=== PATIENT | male | born 1965 | race Caucasian/White ===

== ENCOUNTER 2020-11-28 02:05 | Emergency (ER) | payer MEDICAID ==
[~2020-11-28] VITALS: Ht 182.9 cm; Wt 102.1 kg
[2020-11-28] MEDS ORDERED: LIPITOR 40 MG T40 M1 PO (02:28)
[2020-11-28] MEDS ORDERED: NORVASC10 MG PO (02:29)
[2020-11-28] MEDS ORDERED: ISOSORBIDE MONO30 M1 PO (02:29)
[2020-11-28] MEDS ORDERED: ELIQUIS2.5 MG PO (02:30)
[2020-11-28] MEDS ORDERED: METOPROLOL SUCC25 M1 PO (02:31)
[2020-11-28 04:04] LABS: CREATININE 1.2 mg/dL (0.6-1.3); POTASSIUM 4.5 mmol/L (3.5-5.1)
[2020-11-28 04:09] LABS: ALBUMIN 3.5 g/dL (3.4-5.0); MAGNESIUM 2.1 mg/dL (1.8-2.4); TOTAL BILIRUBIN 0.3 mg/dL (<0.1-1.0); TOTAL PROTEIN 7.4 g/dL (6.4-8.2)
[2020-11-28 04:16] LABS: ABSOLUTE BASOPHILS 0.1 thou/uL (0.0-0.2); ABSOLUTE EOSINOPHILS 0.4 thou/uL (0.0-0.7); ABSOLUTE LYMPHOCYTES 1.1 thou/uL (0.8-5.3); ABSOLUTE MONOCYTES 0.7 thou/uL (0.0-1.2); ABSOLUTE NEUTROPHILS 9.1 thou/uL (1.6-8.1); BASOPHILS 0.8 %; EOSINOPHILS 3.9 %; HEMATOCRIT 40.1 % (42.0-52.0); HEMOGLOBIN 13.5 gm/dL (14.0-18.0); LYMPHOCYTES 9.3 %; MCH 31.1 pg (26.0-34.0); MCHC 33.6 g/dL (28.0-37.0); MCV 92.5 fL (80.0-100.0); MONOCYTES 6.4 %; MPV 7.6 fl. (7.2-11.1); NUCLEATED RBCS 0 /100WBC; POLYS 79.6 %; RBC 4.34 mil/uL (4.50-6.00); RDW-CV 13.9 % (10.5-14.5); WBC 11.5 thou/uL (4.0-11.0)
[2020-11-28] MEDS ORDERED: CORTISPORIN OTI10 ML OTIC (04:44)
[2020-11-28 04:53] VITALS: BP 151/86
[2020-11-28 06:37] LABS: CLUMPED PLTS OCCASIONAL; PLATELET ESTIMATE ADEQUATE
[2020-11-28 06:40] LABS: PLATELET COUNT* 278 thou/uL (150-400)
== END 2020-11-28 04:54 | disposition home or self-care (01) ==
LOC: M.ERS 02:05
PROVIDERS: Personal Emergency Response Attendant
DX: H60.322 Hemorrhagic otitis externa, left ear (principal); I25.10 Atherosclerotic heart disease of native coronary artery without angina pectoris; Z88.5 Allergy status to narcotic agent

== ENCOUNTER 2021-03-11 19:32 | Emergency (ER) | payer MEDICAID ==
[~2021-03-11] VITALS: Ht 182.9 cm; Wt 99.8 kg
[~2021-03-11 19:32] MED LIST: CORTISPORIN OTI10 ML OTIC; ELIQUIS2.5 MG PO; ISOSORBIDE MONO30 M1 PO; LIPITOR 40 MG T40 M1 PO; METOPROLOL SUCC25 M1 PO; NORVASC10 MG PO
[2021-03-11] MEDS ORDERED: ARTIFICIAL TEA1 EACH OPHTHALMIC (19:51)
[2021-03-11 20:59] LABS: ABSOLUTE BASOPHILS 0.1 thou/uL (0.0-0.2); ABSOLUTE EOSINOPHILS 0.2 thou/uL (0.0-0.7); ABSOLUTE MONOCYTES 0.4 thou/uL (0.0-1.2); ABSOLUTE NEUTROPHILS 8.1 thou/uL (1.6-8.1); BASOPHILS 0.9 %; EOSINOPHILS 2.2 %; HEMATOCRIT 33.4 % (42.0-52.0); HEMOGLOBIN 11.2 gm/dL (14.0-18.0); LYMPHOCYTES 10.2 %; MCH 31.1 pg (26.0-34.0); MCHC 33.7 g/dL (28.0-37.0); MCV 92.4 fL (80.0-100.0); MONOCYTES 4.5 %; MPV 6.6 fl. (7.2-11.1); NUCLEATED RBCS 0 /100WBC; PLATELET COUNT* 454 thou/uL (150-400); POLYS 82.2 %; RBC 3.61 mil/uL (4.50-6.00); RDW-CV 14.6 % (10.5-14.5); WBC 9.9 thou/uL (4.0-11.0)
[2021-03-11 21:05] LABS: APTT 27.6 Seconds (25.0-31.3); INR 0.9
[2021-03-11] MEDS ORDERED: NORCO5 PO (21:54)
[2021-03-11 22:20] VITALS: BP 127/81
== END 2021-03-11 22:21 | disposition home or self-care (01) ==
LOC: M.ERS 19:32
PROVIDERS: Nurse Practitioner Family
DX: S70.01XA Contusion of right hip, initial encounter (principal); S70.11XA Contusion of right thigh, initial encounter; I25.10 Atherosclerotic heart disease of native coronary artery without angina pectoris; W18.2XXA Fall in (into) shower or empty bathtub, initial encounter; Y93.89 Activity, other specified; Y92.512 Supermarket, store or market as the place of occurrence of the external cause; Y99.8 Other external cause status